=== PATIENT | male | born 1995 | race Caucasian/White ===

== ENCOUNTER → 2016-05-19 | Outpatient (CLI) | payer BC ==
[2016-05-19 09:18] LABS: CHLORIDE,CL 107 mmol/L (98-110); SODIUM,NA 140 mmol/L (136-146)
== END ==
LOC: MW.CHFP 08:34
PROVIDERS: ATTEND Emergency Medicine
DX: R10.9 Unspecified abdominal pain (principal); K52.9 Noninfective gastroenteritis and colitis, unspecified
CPT/HCPCS: 36415; 80053; 81001; 85025

== ENCOUNTER → 2016-06-27 | Outpatient (CLI) | payer BC ==
--- NOTE | 2016-06-29 14:19 | CR ---
EXAM DATE: 06/27/16 PATIENT'S AGE: 20 Patient: YEVGENIY BORJA Facility: [place], [place] Site . Site : 1996 Study: XRay Spine Lumbar [id number]/25/2017 5:04:17 PM Ordering Physician: Michael Valderrama Final Report: HISTORY: Back pain. Findings: AP, lateral and coned lateral views lumbar spine are compared with 08 February 2015. There are surgical clips right upper quadrant. There are 5 lumbar vertebral bodies present. Disc spaces and vertebral body heights maintained. No spondylolisthesis is seen. Impression: No acute bony abnormality within the lumbar spine. Dictated by Fani Zamora MD @ Jun 29 2016 12:05AM (Electronic Signature) Report Signed by Proxy. MARLY
== END | disposition home or self-care (01) ==
LOC: MW.CHFP 16:37
PROVIDERS: ATTEND Emergency Medicine
DX: M54.5 Low back pain (principal); M25.60 Stiffness of unspecified joint, not elsewhere classified
CPT/HCPCS: 36415; 72100; 72100-26; 85652; 86038; 86140; 86200; 86430

== ENCOUNTER 2016-09-26 08:43 | Day surgery (SDC) | payer BC ==
[~2016-09-26 08:43] MED LIST: Lactated Ringers 1,000 ML IV SCH
[2016-09-26] MEDS ORDERED: Propofol 200 MG/20 ML SDV ONE (10:39)
[2016-09-26] MEDS ORDERED: Midazolam 1 MG/ML 2 ML SDV ONE (10:39)
[2016-09-26] MEDS ORDERED: fentaNYL 100 MCG/2 ML SDV ONE (10:39)
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
[2016-09-26 13:50] VITALS: BP 116/74
--- NOTE | 2016-09-26 14:34 | PCM.OPNOTE ---
- General Post-Op/Procedure Note Date of Surgery/Procedure: 09/26/16 Operative Procedure(s): egd w bx. colonoscopy Findings: see dict [id number] Pre Op Diagnosis: BRBPR and abd pain Post-Op Diagnosis: Same Anesthesia Technique: Moderate Sedation Primary Surgeon: Ike Talbot Pathology: egd bx Complications: None Condition: Good Free Text/Narrative:: Intake & Output 09/25/16 09/26/16 09/26/16 22:59 06:59 14:59 Intake Total 900 Balance 900
--- NOTE | 2016-09-27 10:00 | OR ---
SURGEON: Ike Talbot MD DATE OF PROCEDURE: 09/26/2016 PREOPERATIVE DIAGNOSES: Bright red blood per rectum and abdominal pain. POSTOPERATIVE DIAGNOSES: 1. Esophagogastroduodenoscopy diagnosis is acid reflux, mild. 2. Colonoscopy diagnosis is internal hemorrhoids, mild. PROCEDURE PERFORMED: 1. Esophagogastroduodenoscopy with biopsy. 2. Colonoscopy. DESCRIPTION OF PROCEDURE: EGD: The patient was taken to the endoscopy room, and with the ADMINISTRATIVE AIDE, Diprivan was administered. A well-lubricated EGD scope was gently inserted through the oropharynx, down the esophagus, passing through the gastroesophageal junction, into the stomach. The mucosa was examined upon the passage. Any etiology will be noted. Once in the stomach, we continued to advance to the distal antrum, passed through the pylorus into the second portion of the duodenum. Again, the mucosa was examined for any abnormality and etiology. The scope was then retrieved back to the stomach and then retroflexed to look at the fundus of the stomach. If a biopsy was indicated, we will biopsy the antrum, body, and gastroesophageal junction. The air will be sucked out while the scope is retrieved to reduce the patient's discomfort. The patient tolerated the procedure well. There were no intraoperative complications. Dr. Talbot was present through the whole procedure. Prior to surgery, a time-out had been called, the patient identified, procedure identified and antibiotic administered. The patient was taken to the endoscopy room. A time out was called, patient identified, and procedure identified. Diprivan was then administrated. Patient went from awake to sleep, hearing doctor talking or door closing is normal. Perineum inspection and digital examination were then performed. A well- lubricated colonoscope was gently inserted through the rectum, advanced past the rectosigmoid junction, the descending colon, splenic flexure, transverse colon, hepatic flexure, ascending colon, arrived to the cecum. Cecum was identified as dictated in the finding. Then the scope was carefully withdrawn while attention was paid to the mucosal surface for any abnormality. Air will be sucked out during the scope withdrawal. At the rectum, retroflexed to examine any rectal diseases, fistula or hemorrhoids. Patient tolerated procedure well. There were no intraoperative complications, and Dr. Talbot was present throughout the whole procedure. FINDINGS: EGD findings: 1. The patient is easily sedated with ADMINISTRATIVE AIDE and Diprivan. The patient is soundly snoring. 2. Oropharynx and proximal esophagus is free of disease, stricture, ulceration, bleeding. The patient has a curious white stuff, possible Josy fungal infection with biopsy, and GE junction at 40 shows mild salmon color change consistent with acid reflux very mild. Stomach rugae is normal in appearance and there is a lot of bile. No food particle. No blood or ulcer. Duodenum is grossly normal in appearance. Antrum was a bit inflamed. Retroflexed look at the fundus of stomach and there is no hiatal hernia. Biopsy done at antrum, GE junction at 40, and body and sucked out air while scope pulling out. Colonoscopy findings: 1. The patient is easily sedated with ADMINISTRATIVE AIDE and Diprivan. The patient is soundly snoring. 2. Bowel prep is left to be desirable with large amount of bubbles and compromised study, and is a compromised study because of the bubbles. The patient has a colon, it is rather straight forward. Cecum indicated by ileocecal fold, one-to-one indentation, appendix orifice, light emittance is not observed. Constant irrigation. Mucosa examined upon scope pulling out. The patient does not have diverticulosis, polyp, mass, growth, inflammation, stricture, ulceration, bleeding observed. The patient has mild internal hemorrhoids. No external hemorrhoids. Examination of perineum area there is no dots or pits. The patient will benefit from repeat colonoscopy 10 years from today or if clinically indicated otherwise. The patient can request a formal report if the patient interests. RYDER / KAELA /[id number]
== END 2016-09-26 14:10 | disposition home or self-care (01) ==
LOC: MW.SDS 08:43
PROVIDERS: ATTEND Surgery
DX: K29.50 Unspecified chronic gastritis without bleeding (principal); K21.0 Gastro-esophageal reflux disease with esophagitis; K64.8 Other hemorrhoids; F17.220 Nicotine dependence, chewing tobacco, uncomplicated; J45.909 Unspecified asthma, uncomplicated; Z79.899 Other long term (current) drug therapy; Z91.048 Other nonmedicinal substance allergy status; Z98.890 Other specified postprocedural states
CPT/HCPCS: 43239; 45378; 88305; 88312; J2250; J3010; J7120; 00740; J2704

== ENCOUNTER 2017-09-04 19:39 | Emergency (ER) | payer BC ==
[2017-09-04] MEDS ORDERED: methylPREDNISolone Sodium Succinate 125 MG/2 ML SDV IM ONE (19:54)
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
[2017-09-04] MEDS ORDERED: diphenhydrAMINE 50 MG/ML SDV IM ONE (19:55)
[2017-09-04 20:20] VITALS: BP 115/74
== END 2017-09-04 20:20 | disposition home or self-care (01) ==
LOC: MW.ED 19:39
DX: T63.441A Toxic effect of venom of bees, accidental (unintentional), initial encounter (principal); J45.909 Unspecified asthma, uncomplicated; K21.9 Gastro-esophageal reflux disease without esophagitis; F41.9 Anxiety disorder, unspecified; Z91.048 Other nonmedicinal substance allergy status; Z79.899 Other long term (current) drug therapy
CPT/HCPCS: 96372; 99283; J1200; J2930

== ENCOUNTER 2020-11-20 18:37 | Emergency (ER) | payer BC, OTHER ==
[2020-11-20 19:17] VITALS: BP 106/61; PULSE 62
[2020-11-20] MEDS ORDERED: Tetracaine HCl/PF 0.5% 4 ML Bottle EYEBOTH ONE (20:10)
[2020-11-20] MEDS ORDERED: Erythromycin Base 0.5% Ophth Oint 1 GM Tube EYERT ONE (20:16)
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
== END 2020-11-20 20:29 | disposition home or self-care (01) ==
LOC: MW.ED 18:37
DX: S05.01XA Injury of conjunctiva and corneal abrasion without foreign body, right eye, initial encounter (principal); Z91.09 Other allergy status, other than to drugs and biological substances; Z91.048 Other nonmedicinal substance allergy status; W22.8XXA Striking against or struck by other objects, initial encounter
CPT/HCPCS: 99283; A9270

== ENCOUNTER 2022-02-26 20:46 | Emergency (ER) | payer SELFPAY ==
[2022-02-26 21:10] VITALS: BP 112/72
[2022-02-26] MEDS ORDERED: Albuterol/Ipratropium 3.0-0.5 MG/3 ML Neb Soln NEB ONE (21:15)
[2022-02-26] MEDS ORDERED: methylPREDNISolone Sodium Succinate 125 MG/2 ML SDV IM ONE (21:16)
[2022-02-26 22:04] LABS: CORONAVIRUS COVID-19 NAA NEGATIVE (NEGATIVE); INFLUENZA A NAA POSITIVE (NEGATIVE); INFLUENZA B NAA NEGATIVE (NEGATIVE)
[2022-02-26] MEDS ORDERED: Oxymetazoline 0.05% Nasal Spray 30 ML Bottle NAS ONE (22:07)
[2022-02-26] MEDS ORDERED: Oseltamivir 75 MG Cap PO ONE (22:08)
[2022-02-26 22:19] VITALS: PULSE 94
== END 2022-02-26 22:17 | disposition home or self-care (01) ==
LOC: MW.ED 20:46
DX: J45.909 Unspecified asthma, uncomplicated (principal); J10.1 Influenza due to other identified influenza virus with other respiratory manifestations; K21.9 Gastro-esophageal reflux disease without esophagitis; Z91.048 Other nonmedicinal substance allergy status; Z79.899 Other long term (current) drug therapy; Z20.822 Contact with and (suspected) exposure to COVID-19
CPT/HCPCS: 0240U; 94642; 96372; 99285; A9270; J2930; J7620-GY

== ENCOUNTER 2023-06-12 08:54 | Emergency (ER) | payer OTHER ==
[2023-06-12] MEDS: Sodium Chloride 0.9% 1,000 ML IV STA (09:23)
[2023-06-12] MEDS: Sodium Chloride 0.9% 10 ML Syringe FLUSH PRN (09:23)
[2023-06-12] MEDS: Sodium Chloride 0.9% 2.5 ML Syringe FLUSH PRN (09:23)
[2023-06-12 09:36] LABS: BASOPHILS ABSOLUTE AUTO 0.02 K/uL (0.00-0.20); BASOPHILS PERCENT AUTO 0.2 % (0.0-1.0); EOSINOPHILS ABSOLUTE AUTO 0.04 K/uL (0.00-0.45); EOSINOPHILS PERCENT AUTO 0.4 % (0.0-6.0); HEMATOCRIT 45.9 % (42.0-52.0); HEMOGLOBIN 16.1 g/dL (14.0-18.0); IMMATURE GRAN ABSOLUTE AUTO 0.03 K/uL (0.00-0.05); IMMATURE GRAN PERCENT AUTO 0.3 % (0.0-0.4); LYMPHOCYTES ABSOLUTE AUTO 0.34 K/uL (1.00-4.80); LYMPHOCYTES PERCENT AUTO 3.2 % (24.0-44.0); MEAN CORPUSCULAR HGB CONC 35.1 g/dL (32.0-36.0); MEAN CORPUSCULAR VOLUME 82.6 fL (83.0-99.0); MEAN PLATELET VOLUME 10.3 fL (9.4-12.4); MONOCYTES ABSOLUTE AUTO 0.39 K/uL (0.00-0.80); MONOCYTES PERCENT AUTO 3.7 % (0.0-8.0); NEUTROPHILS ABSOLUTE AUTO 9.81 K/uL (1.80-7.70); NEUTROPHILS PERCENT AUTO 92.2 % (41.0-71.0); PLATELET COUNT,PLT 143 K/uL (150-400); RED BLOOD CELL COUNT 5.56 M/uL (4.52-5.90); WHITE BLOOD CELL COUNT,WBC 10.63 K/uL (3.9-11.3)
[2023-06-12] MEDS: Ondansetron 4 MG/2 ML SDV IVPUSH ONE (09:44)
[2023-06-12 09:58] LABS: CORONAVIRUS COVID-19 NAA NEGATIVE (NEGATIVE); INFLUENZA A NAA NEGATIVE (NEGATIVE); INFLUENZA B NAA NEGATIVE (NEGATIVE)
[2023-06-12 10:07] LABS: A/G RATIO 1.4 (0.9-1.6); ALBUMIN 4.6 g/dL (3.4-5.0); BILIRUBIN TOTAL 1.4 mg/dL (0.2-1.0); CALCIUM 9.2 mg/dL (8.5-10.1); CARBON DIOXIDE,CO2 23.2 mmol/L (21.0-32.0); CREATININE 0.9 mg/dL (0.8-1.3); EST CRCL DRUG DOSING (CG) 120.33 mL/min; POTASSIUM,K 3.5 mmol/L (3.5-5.1); PROTEIN TOTAL,TP 7.8 g/dL (6.4-8.2)
[2023-06-12 10:09] LABS: APPEARANCE,URINE CLEAR; BILIRUBIN,URINE NEGATIVE (NEGATIVE); GLUCOSE,URINE NEGATIVE (NEGATIVE); KETONES,URINE TRACE mg/dL (NEGATIVE); LEUKOCYTE ESTERASE,URINE NEGATIVE (NEGATIVE); NITRITE,URINE NEGATIVE (NEGATIVE); OCCULT BLOOD,URINE NEGATIVE (NEGATIVE); PROTEIN,URINE NEGATIVE (NEGATIVE); UROBILINOGEN,URINE 0.2 EU/dL (<2.0)
[2023-06-12 10:14] LABS: COLOR,URINE DARK YELLOW
[2023-06-12 10:27] VITALS: BP 120/60; PULSE 87
== END 2023-06-12 10:33 | disposition home or self-care (01) ==
LOC: MW.ED 08:54
DX: R11.2 Nausea with vomiting, unspecified (principal); R19.7 Diarrhea, unspecified; J45.909 Unspecified asthma, uncomplicated; Z79.899 Other long term (current) drug therapy; Z91.048 Other nonmedicinal substance allergy status; Z75.8 Other problems related to medical facilities and other health care
CPT/HCPCS: 0240U; 36415; 80053; 81003; 83690; 85025; 96361; 96374; 99284; J2405; J3490; J7030

== ENCOUNTER 2023-09-16 10:04 | Emergency (ER) | payer OTHER ==
[2023-09-16] MEDS: Acetaminophen/HYDROcodone 325-5 MG Tab PO ONE (10:30)
[2023-09-16 11:22] VITALS: BP 111/79; PULSE 79
== END 2023-09-16 11:21 | disposition home or self-care (01) ==
LOC: MW.ED 10:04
DX: S29.9XXA Unspecified injury of thorax, initial encounter (principal); Z75.8 Other problems related to medical facilities and other health care; Z90.49 Acquired absence of other specified parts of digestive tract; Z91.048 Other nonmedicinal substance allergy status; W01.119A Fall on same level from slipping, tripping and stumbling with subsequent striking against unspecified sharp object, initial encounter
CPT/HCPCS: 71101; 99283; A9270